=== PATIENT | male | born 1940 | race Caucasian/White ===

== ENCOUNTER 2020-06-14 08:48 | Emergency (ER) | payer OTHER ==
[~2020-06-14] VITALS: Ht 175.3 cm; Wt 81.6 kg
[~2020-06-14 08:48] MED LIST: ATOR20TA64 PO; CYAN1TAB52 SL; GLUC100017 PO; MULT-1117; OMEG1CAP18 PO; THEO200T22 PO; TRAZ-250 PO
[2020-06-14 08:59] VITALS: BP_SYST 142
[2020-06-14] MEDS ORDERED: DEXAMETHASONE SOD PHOSPHATE 10 MG/ML VIAL PO ONE (11:00)
[2020-06-14 11:12] VITALS: BP_SYST 126
== END 2020-06-14 11:13 | disposition home or self-care (01) ==
LOC: SED 08:48
DX: J02.9 Acute pharyngitis, unspecified (principal); I10 Essential (primary) hypertension; E78.00 Pure hypercholesterolemia, unspecified; Z79.899 Other long term (current) drug therapy
CPT/HCPCS: 70490; 99284; J1100

== ENCOUNTER 2023-12-27 12:57 | Emergency (ER) | payer OTHER ==
[~2023-12-27] VITALS: Ht 175.3 cm; Wt 81.6 kg
[2023-12-27 13:13] VITALS: BP_SYST 155; PULSE 57; RESP 17; TEMP 97.2; O2SAT 97
[2023-12-27 16:05] LABS: BASOPHILS % (AUTO) 0.3 % (0.0-2.0); EOSINOPHILS # (AUTO) 0.1 K/uL (0.0-0.4); EOSINOPHILS % (AUTO) 1.2 % (0.0-4.0); HEMATOCRIT 42.3 % (36-54); HEMOGLOBIN 14.8 g/dL (14.0-18.0); LYMPHOCYTES # (AUTO) 2.1 K/uL (1.0-5.5); LYMPHOCYTES % (AUTO) 35.1 % (20.5-51.5); MEAN CORPUSCULAR HEMOGLOBIN 33 pg (27-31); MEAN CORPUSCULAR HGB CONC 35 % (32-36); MEAN CORPUSCULAR VOLUME 93 fL (79.0-98.0); MONOCYTES # (AUTO) 0.4 K/uL (0.0-1.0); MONOCYTES % (AUTO) 6.9 % (1.7-9.3); NEUTROPHILS # (AUTO) 3.4 K/uL (1.8-7.7); NEUTROPHILS % (AUTO) 56.5 % (40.0-70.0); PLATELET COUNT (AUTO) 147 K/uL (130-430); RED BLOOD CELL COUNT(AUTO) 4.55 MIL/uL (4.2-6.2); RED CELL DISTRIBUTION WIDTH 13.7 % (9.0-15.0)
[2023-12-27 16:25] LABS: PROTHROMBIN TIME 10.6 SECS (9.5-12.5)
[2023-12-27 16:26] LABS: ANION GAP 10 (5-15); CALCIUM 9.8 mg/dL (8.4-11.0); CARBON DIOXIDE 26 mmol/L (23-29); CHLORIDE 105 mmol/L (98-107); CREATININE 1.11 mg/dL (0.55-1.30); GLUCOSE 94 mg/dL (74-106); POTASSIUM 4.3 mmol/L (3.5-5.1); SODIUM SERUM 141 mmol/L (136-145); UREA NITROGEN, BLOOD 15 mg/dL (8-21)
[2023-12-27 16:41] LABS: ALANINE AMINOTRANSFERASE 23 U/L (12-78); ALBUMIN 3.7 g/dL (3.4-4.8); ASPARTATE AMINOTRANSFERASE 18 U/L (10-37); BILIRUBIN,DIRECT 0.1 mg/dL (0.0-0.3); TOTAL BILIRUBIN 0.5 mg/dL (0.0-1.0); TOTAL PROTEIN, SERUM 6.8 g/dL (6.4-8.3)
[2023-12-27] MEDS ORDERED: CLON0.2T PO (17:02)
[2023-12-27 17:33] VITALS: BP_SYST 149; PULSE 57; RESP 17; TEMP 97.2; O2SAT 98
== END 2023-12-27 17:34 | disposition home or self-care (01) ==
LOC: SED 12:57
DX: I16.0 Hypertensive urgency (principal); I10 Essential (primary) hypertension; E78.00 Pure hypercholesterolemia, unspecified; Z79.899 Other long term (current) drug therapy
CPT/HCPCS: 36415; 70450-TC; 71045; 76376; 80048; 80076; 83880; 84484; 85025; 85610; 85730; 93005; 99285